=== PATIENT | male | born 1960 | race African-American/Black ===

== ENCOUNTER 2019-01-25 08:30 | Emergency (ER) | payer OTHER ==
[2019-01-25 08:36] VITALS: TEMP 98.1; BMI 32.1
--- NOTE | 2019-01-25 09:15 | PDOC ---
History of Present Illness - General Chief Complaint: Headache Stated Complaint: Headache Time Seen by Provider: 01/25/19 09:15 - History of Present Illness Initial Comments: 01/25/19 09:15 Mr. Miller is a 58 yo male w/ pmh of HTN who presents for evaluation of 1 week history of left sided headache with additional 2 day history of left sided vision blurriness he reports he has never had before. Reports continued headache as well. The patient denies chest pain, shortness of breath, and dizziness. Denies fever , chills, nausea, vomit, diarrhea and constipation. Denies dysuria, frequency, urgency and hematuria. Past History - Past Medical History Allergies/Adverse Reactions: Allergies Allergy/AdvReac Type Severity Reaction Status Date / Time No Known Allergies Allergy Verified 01/25/19 08:36 COPD: No HTN: Yes - Immunization History Immunization Up to Date: Yes - Suicide/Smoking/Psychosocial Hx Smoking History: Never smoked Information on smoking cessation initiated: No Hx Alcohol Use: No Drug/Substance Use Hx: No Review of Systems - Review of Systems Comments:: 01/25/19 09:15 GENERAL/CONSTITUTIONAL: No fever or chills. No weakness. HEAD, EYES, EARS, NOSE AND THROAT: +Vision changes as described. No ear pain or discharge. No sore throat. CARDIOVASCULAR: No chest pain or shortness of breath RESPIRATORY: No cough, wheezing, or hemoptysis. GASTROINTESTINAL: No nausea, vomiting, diarrhea or constipation. GENITOURINARY: No dysuria, frequency, or change in urination. MUSCULOSKELETAL: No joint or muscle swelling or pain. No neck or back pain. SKIN: No rash NEUROLOGIC: +Headache as described, no vertigo, loss of consciousness, or change in strength/sensation. ENDOCRINE: No increased thirst. No abnormal weight change HEMATOLOGIC/LYMPHATIC: No anemia, easy bleeding, or history of blood clots. ALLERGIC/IMMUNOLOGIC: No hives or skin allergy. *Physical Exam - Vital Signs Last Vital Signs Temp Pulse Resp BP Pulse Ox 98.1 F 127 H 16 178/91 H 100 01/25/19 08:33 01/25/19 08:33 01/25/19 08:33 01/25/19 08:33 01/25/19 08:33 - Physical Exam Comments: 01/25/19 09:16 GENERAL: Awake, alert, and fully oriented, in no acute distress HEAD: No signs of trauma, normocephalic, atraumatic EYES: +20/50 vision on R, 20/20 on Left; injected conjunctiva. PERRLA, EOMI, sclera anicteric ENT: Auricles normal inspection, hearing grossly normal, nares patent, oropharynx clear without exudates. Moist mucosa NECK: Normal ROM, supple, no lymphadenopathy, JVD, or masses LUNGS: No distress, speaks full sentences, clear to auscultation bilaterally HEART: Regular rate and rhythm, normal S1 and S2, no murmurs, rubs or gallops, peripheral pulses normal and equal bilaterally. ABDOMEN: Soft, nontender, normoactive bowel sounds. No guarding, no rebound. No masses EXTREMITIES: Normal inspection, Normal range of motion, no edema. No clubbing or cyanosis. NEUROLOGICAL: Cranial nerves II through XII grossly intact. Normal speech, normal gait, no focal sensorimotor deficits SKIN: Warm, Dry, normal turgor, no rashes or lesions noted. ED Treatment Course - LABORATORY CBC & Chemistry Diagram: 01/25/19 09:45 01/25/19 09:45 Medical Decision Making - Medical Decision Making 01/25/19 10:12 Mr. Miller is a 58 yo male w/ pmh as described who presents for evaluation of headache with additional blurry vision x2 days. Patient reports he commonly gets headaches although his blurry vision is new. Patient repeat temperature decreased to 150s systolic upon initial evaluation by provider. Patient will be evaluated with head CT as well as labs and EKG for acute process. 01/25/19 10:[address] negative. Labs grossly wnl as below. Patient reporting improvement of symptoms with fluids, reglan, and oral tylenol. No concern for acute process at this time - discharging to home for further outpatient evaluation. Laboratory Results - last 24 hr 01/25/19 01/25/19 09:45 09:45 WBC 7.0 RBC 5.15 Hgb 13.5 Hct 42.0 MCV 81.5 MCH 26.2 MCHC 32.2 RDW 14.6 Plt Count 255 MPV 9.0 Absolute Neuts (auto) 4.1 Neutrophils % 59.0 Lymphocytes % 26.4 Monocytes % 8.5 Eosinophils % 4.9 H Basophils % 1.2 Nucleated RBC % 0 Sodium 138 Potassium 4.1 Chloride 103 Carbon Dioxide 28 Anion Gap 6 L BUN 18 Creatinine 1.2 Creat Clearance w eGFR 61.97 Random Glucose 97 Calcium 9.8 Total Bilirubin 0.6 AST 9 L ALT 20 Alkaline Phosphatase 96 Creatine Kinase 116 Troponin I < 0.02 Total Protein 8.4 H Albumin 4.0 *DC/Admit/Observation/Transfer Diagnosis at time of Disposition: Headache Qualifiers: Headache type: unspecified Headache chronicity pattern: unspecified pattern Intractability: not intractable Qualified Code(s): R51 - Headache - Discharge Dispostion Disposition: HOME - Referrals - Patient Instructions Printed Discharge Instructions: DI for Migraine Additional Instructions: You were evaluated today in the ER for your symptoms. We performed head CT as well as laboratory evaluation with no concerning findings. Please follow-up with eye doctor and primary care provider later this week outpatient for further evaluation. Return to ER if any increase in headache, fever, chills, or other concerning symptoms. - Post Discharge Activity
--- NOTE | 2019-01-25 09:24 | PDOC ---
Attending Attestation - Resident Resident Name: Sean Quigley - ED Attending Attestation I have performed the following: I have examined & evaluated the patient, The case was reviewed & discussed with the resident, I agree w/resident's findings & plan, Exceptions are as noted - HPI HPI: 58 yo M history HTN presents with L sided headache intermittently for the past week, associated with blurry vision to the L eye. He has had similar headaches in the past, this is not a change in pattern. However, the blurry vision is new onset. He states that he regularly checks his blood pressure, which tends to be more elevated at work (usually up to 150s/90s), lower at home. He took his medication this morning. Denies cp, SOB, palpitations, neck pain. Also mentioned that he had a stomach virus over the weekend, which is better now. - Physicial Exam PE: GENERAL: Awake, alert, and fully oriented, in no acute distress HEAD: No signs of trauma EYES: PERRLA, EOMI, sclera anicteric, conjunctiva clear ENT: Auricles normal inspection, hearing grossly normal, nares patent, oropharynx clear without exudates. Moist mucosa NECK: Normal ROM, supple, no lymphadenopathy, JVD, or masses LUNGS: Breath sounds equal, clear to auscultation bilaterally. No wheezes, and no crackles HEART: Regular rate and rhythm, normal S1 and S2, no murmurs, rubs or gallops ABDOMEN: Soft, nontender, normoactive bowel sounds. No guarding, no rebound. No masses EXTREMITIES: Normal range of motion, no edema. No clubbing or cyanosis. No cords, erythema, or tenderness NEUROLOGICAL: Cranial nerves II through XII grossly intact. Normal speech, normal gait. Motor and sensation intact SKIN: Warm, Dry, normal turgor, no rashes or lesions noted. - Medical Decision Making Pt with new onset blurry vision associated with headache, high BP on arrival in ED, but now 118/70 as I examined him. Will obtain labs to r/o hyperglycemia. EKG , CTH. If all wnl, will DC home with outpatient f/u.
[2019-01-25 09:42] VITALS: BP 118/77; PULSE 112
[2019-01-25] MEDS ORDERED: SODIUM CHLORIDE 1,000 ML IV STA (09:42)
[2019-01-25] MEDS ORDERED: METOCLOPRAMIDE HCL INJECTION 10 MG/2 ML VIAL IVPB ONE (09:42)
[2019-01-25] MEDS ORDERED: ACETAMINOPHEN 500 MG TABLET (FP) PO ONE (09:43)
[2019-01-25] MEDS ORDERED: METOCLOPRAMIDE HCL INJECTION 10 MG/2 ML VIAL ONE (09:45)
[2019-01-25] MEDS ORDERED: ACETAMINOPHEN 325 MG TABLET (FP) ONE (09:54)
--- NOTE | 2019-01-25 09:56 | EKG ---
Test Reason : Blood Pressure : / mmHG Vent. Rate : 113 BPM Atrial Rate : 113 BPM P-R Int : 170 ms QRS Dur : 082 ms QT Int : 320 ms P-R-T Axes : 025 -18 016 degrees QTc Int : 438 ms SINUS TACHYCARDIA MINIMAL VOLTAGE CRITERIA FOR LVH, MAY BE NORMAL VARIANT BORDERLINE ECG NO PREVIOUS ECGS AVAILABLE Confirmed by CISCO WEATHERS, NE ([id number]) on 01/25/2019 9:56:18 AM Referred By: Confirmed By:NE PECK MD
[2019-01-25 10:04] LABS: BASO % 1.2 % (0-2.0); EOS % 4.9 % (0-4.5); HEMOGLOBIN 13.5 GM/dL (11.7-16.9); LYMPH % 26.4 % (8-40); MCH 26.2 pg (25.7-33.7); MCHC 32.2 g/dl (32.0-35.9); MEAN CELL VOLUME 81.5 fl (80-96); MONO % 8.5 % (3.8-10.2); PLATELET COUNT 255 K/MM3 (134-434); RBC 5.15 M/mm3 (4.00-5.60); RDW 14.6 % (11.9-15.9)
[2019-01-25 10:37] LABS: ALK PHOS 96 U/L (45-117); ANION GAP 6 MMOL/L (8-16); BILIRUBIN,TOTAL 0.6 mg/dL (0.2-1); BLOOD UREA NITROGEN 18 mg/dL (7-18); CALCIUM 9.8 mg/dL (8.5-10.1); CHLORIDE 103 mmol/L (98-107); CO2 28 mmol/L (21-32); CREATININE 1.2 mg/dL (0.55-1.3); GLUCOSE,RANDOM 97 mg/dL (74-106); POTASSIUM 4.1 mmol/L (3.5-5.1); SGOT/AST 9 U/L (15-37); SGPT/ALT 20 U/L (13-61); SODIUM 138 mmol/L (136-145); TOT PROT 8.4 g/dl (6.4-8.2)
== END 2019-01-25 11:24 | disposition home or self-care (01) ==
LOC: JER 08:30
PROC: 3E033GC Introduction of Other Therapeutic Substance into Peripheral Vein, Percutaneous Approach (ICD-10-PCS; principal; 2019-01-25)
PROC: 4A07X0Z Measurement of Visual Acuity, External Approach (ICD-10-PCS; 2019-01-25)
DX: R51 Headache (principal)
CPT/HCPCS: 36415; 70450-TC; 80053; 82550; 84484; 85025; 93005; 93010; 99282-25; J7030